=== PATIENT | female | born 1990 | race Caucasian/White ===

== ENCOUNTER 2017-03-19 08:57 | Emergency (ER) | payer OTHER ==
[~2017-03-19] VITALS: Ht 160 cm; Wt 59.0 kg
[2017-03-19 09:07] VITALS: BP 115/68
[2017-03-19] MEDS ORDERED: HYDR-971 PO (09:47)
[2017-03-19] MEDS ORDERED: AMOX500C PO (09:47)
--- NOTE | 2017-03-19 09:47 | PHYS DOC ---
Past Medical History Past Medical History: No Pertinent History Past Surgical History: , Tubal ligation Alcohol Use: None Drug Use: None Adult General Chief Complaint Chief Complaint: DENTAL PROBLEM HPI HPI Patient is a 26 year old female presents to the emergency department stating that she has having left lower dental pain and discomfort. She states this is been helping for the last few days. She's been taken ibuprofen for the pain with minimal relief. Patient does have swelling noted to the left outer jaw area. She has not placed a appointment with the dentist as she was trying to wait for the inflammation to go down. She denies any allergies. She denies any possibility of being . Review of Systems Review of Systems Constitutional: Denies fever or chills [] Eyes: Denies change in visual acuity, redness, or eye pain [] HENT: Denies nasal congestion or sore throat. Complaint of dental pain with left lower jaw swelling Respiratory: Denies cough or shortness of breath [] Cardiovascular: No additional information not addressed in HPI [] GI: Denies abdominal pain, nausea, vomiting, bloody stools or diarrhea [] : Denies dysuria or hematuria [] Musculoskeletal: Denies back pain or joint pain [] Integument: Denies rash or skin lesions [] Neurologic: Denies headache, focal weakness or sensory changes [] Endocrine: Denies polyuria or polydipsia [] Allergies Allergies Allergies Coded Allergies Type Severity Reaction Last Updated Verified No Known Drug Allergies 03/19/17 No Physical Exam Physical Exam Constitutional: Well developed, well nourished, no acute distress, non-toxic appearance. [] HENT: Normocephalic, atraumatic, bilateral external ears normal, oropharynx moist, no oral exudates, nose normal. Bilateral tympanic membranes appear to be normal. Patient with decreased ability to open the mouth due to the swelling and pain. Teeth #22 through 24. To be red decayed with redness noted. No drainage or discharge noted. She does have swelling noted to the outer portion of the left lower jaw. Eyes: PERRLA, EOMI, conjunctiva normal, no discharge. [] Neck: Normal range of motion, no tenderness, supple, no stridor. [] Cardiovascular:Heart rate regular rhythm, no murmur [] Lungs & Thorax: Bilateral breath sounds clear to auscultation [] Skin: Warm, dry, no erythema, no rash. [] Back: No tenderness Extremities: No tenderness, no cyanosis, no clubbing, ROM intact, no edema. [] Neurologic: Alert and oriented X 3, normal motor function, normal sensory function, no focal deficits noted. [] Psychologic: Affect normal, judgement normal, mood normal. [] Current Patient Data Vital Signs Vital Signs Date Time Temp Pulse Resp B/P (MAP) Pulse Ox O2 Delivery O2 Flow Rate FiO2 03/19/17 09:07 98.2 66 18 96 Room Air 98.2 EKG EKG [] Radiology/Procedures Radiology/Procedures [] Course & Med Decision Making Course & Med Decision Making Pertinent Labs and Imaging studies reviewed. (See chart for details) Patient will be discharged home with a prescription for amoxicillin 4 times a day. She'll also be provided with a prescription for hydrocodone in which she was instructed will cause drowsiness do not take if she needs be alert and oriented. Recommended warm moist packs as well as continuing with ibuprofen. Patient will be discharged home in stable condition with recommendations to follow-up in 3-5 days. Also recommended for her to go ahead and place a appointment with a dentist as sometimes it is difficult to get in. Patient will be discharged home in stable condition signs symptoms to return back as been provided. All questions and concerns answered at patient's bedside. [] Dragon Disclaimer Dragon Disclaimer This electronic medical record was generated, in whole or in part, using a voice recognition dictation system. Departure Departure Impression: Primary Impression: Infected dental caries Disposition: 01 HOME, SELF-CARE Condition: STABLE Patient Instructions: Dental Abscess Additional Instructions: Activity as tolerated. Antibiotics as prescribed. Continue with the ibuprofen every 8 hours. Hydrocodone for severe pain and discomfort. This medication will cause drowsiness do not take any be alert and oriented. Follow-up with the primary care physician or return back here in 3-5 days to make sure the infection is starting to clear. It is advisable you call for a dental appointment as soon as possible. Return back to emergency prior signs symptoms of become worse. Scripts Hydrocodone/Apap 5-325 (NORCO 5-325 TABLET) 1 Each Tablet 1 TAB PO PRN Q6HRS Y for PAIN, #20 TAB 0 Refills Prov: LISA OLIVERAAntonia Jaime TAX EXAMINING TECHNICIAN 03/19/17 Amoxicillin (AMOXICILLIN) 500 Mg Capsule 1 CAP PO QID, #40 CAP Prov: EZEKIEL OLIVERA APRN 03/19/17 EZEKIEL OLIVERA APRN Mar 19, 2017 09:47
== END 2017-03-19 09:58 | disposition home or self-care (01) ==
LOC: ER 08:57
DX: K04.7 Periapical abscess without sinus (principal); K08.89 Other specified disorders of teeth and supporting structures
CPT/HCPCS: 99283

== ENCOUNTER → 2017-04-14 | Outpatient (CLI) | payer MEDICAID, OTHER ==
[2017-03-19 09:07] VITALS: BP 115/68
[~2017-04-14] MED LIST: AMOX500C PO; HYDR-971 PO
--- NOTE | 2017-04-14 11:58 | RAD ---
Indication right upper quadrant abdominal pain. Grayscale imaging was performed. Examination was targeted to the right upper quadrant. No prior imaging is available. The gallbladder appears normal. No cholelithiasis or wall thickening is seen. That portion of the pancreas which was seen appeared unremarkable. The visualized aorta and IVC appeared normal. The visualized liver appeared normal. The common bile duct diameter of approximately 4 mm is normal. The right kidney appeared unremarkable. IMPRESSION: Normal right upper quadrant ultrasound exam
== END | disposition home or self-care (01) ==
LOC: US 11:06
PROVIDERS: ATTEND Family Medicine
DX: K80.20 Calculus of gallbladder without cholecystitis without obstruction (principal)
CPT/HCPCS: 76705

== ENCOUNTER 2018-11-12 10:51 | Emergency (ER) | payer OTHER ==
[~2018-11-12] VITALS: Ht 157.5 cm; Wt 63.5 kg
[~2018-11-12 10:51] MED LIST changes: +HYDR-3164 PO; -HYDR-971 PO; +OMEP40CA5 PO
[2018-11-12 11:30] VITALS: BP 108/63
[2018-11-12] MEDS ORDERED: TETRACAINE 0.5% OPHTH SOLUTION 4ML BOTTLE. OS ONE (12:15)
[2018-11-12] MEDS ORDERED: FLUORESCEIN OPHTH TEST STRIP. OS ONE (12:15)
--- NOTE | 2018-11-12 12:42 | PHYS DOC ---
Past Medical History Past Medical History: No Pertinent History Past Surgical History: , Tubal ligation Additional Past Surgical Histo: C-SECTIONX3 Smoking: Less than 1pk/day Additional Information: smoker Alcohol Use: None Drug Use: None Adult General Chief Complaint Chief Complaint: EYE PROBLEMS HPI HPI Patient is a 28 year old who presents after working at [employer] this morning and she thinks she got something in her left eye. This happened at approximately 10:30 this morning. Pt is having irritation of her left eye. States her pain is 5 out of 10 and feels scratchy. Also states that the corner of her eye is blurry. She is not a contact wearer. Has not tried any treatment prior to arrival Review of Systems Review of Systems Constitutional: Denies fever or chills [] Eyes: Denies change in visual acuity, redness but reports eye pain and corner of eye blurriness.[] HENT: Denies nasal congestion or sore throat [] Respiratory: Denies cough or shortness of breath [] Cardiovascular: No additional information not addressed in HPI [] GI: Denies abdominal pain, nausea, vomiting, bloody stools or diarrhea [] : Denies dysuria or hematuria [] Musculoskeletal: Denies back pain or joint pain [] Integument: Denies rash or skin lesions [] Neurologic: Denies headache, focal weakness or sensory changes [] Endocrine: Denies polyuria or polydipsia [] Complete systems were reviewed and found to be within normal limits, except as documented in this note. Current Medications Current Medications Current Medications Medications (Trade) Dose Ordered Sig/Tommy Start Time Stop Time Status Last Admin Dose Admin Fluorescein Sodium (Ful-Gisele) 1 strip 1X ONCE 11/12/18 12:15 11/12/18 12:16 DC Tetracaine HCl (Tetracaine) 1 drop 1X ONCE 11/12/18 12:15 11/12/18 12:16 DC Allergies Allergies Allergies Coded Allergies Type Severity Reaction Last Updated Verified No Known Drug Allergies 03/19/17 No Physical Exam Physical Exam Constitutional: Well developed, well nourished, no acute distress, non-toxic appearance. [] HENT: Normocephalic, atraumatic, bilateral external ears normal, oropharynx moist, no oral exudates, nose normal. [] Eyes: PERRLA, EOMI, conjunctiva normal, no discharge. Corneal abrasion on L pupil Neck: Normal range of motion, no tenderness, supple, no stridor. [] Cardiovascular:Heart rate regular rhythm, no murmur [] Lungs & Thorax: Bilateral breath sounds clear to auscultation [] Abdomen: Soft, no tenderness, no masses, no pulsatile masses. [] Skin: Warm, dry, no erythema, no rash. [] Extremities: No tenderness, no cyanosis, no clubbing, ROM intact, no edema. [] Neurologic: Alert and oriented X 3, normal motor function, normal sensory function, no focal deficits noted. [] Psychologic: Affect normal, judgement normal, mood normal. [] Current Patient Data Vital Signs Vital Signs Date Time Temp Pulse Resp B/P (MAP) Pulse Ox O2 Delivery O2 Flow Rate FiO2 11/12/18 11:30 98.6 77 20 108/63 (78) 98 Room Air 98.6 EKG EKG [] Radiology/Procedures Radiology/Procedures Performed Wood's lamp examination on patient. Reveals corneal abrasion on L eye on the right side of pupil. [] Course & Med Decision Making Course & Med Decision Making Pertinent Labs and Imaging studies reviewed. (See chart for details) Discussed symptoms with patients. Will do rm lamp examination and visual acuity. Patient is agreeable. Wood's lamp examination reveals corneal abrasion to the anterior portion of L pupil on the right side. Visual acuity is reduced in left eye. Patient has blurriness in the area of vision where the corneal abrasion is which explains the visual acuity. Patient is agreeable to plan of care for discharge. Dragon Disclaimer Dragon Disclaimer This electronic medical record was generated, in whole or in part, using a voice recognition dictation system. Departure Departure Impression: Primary Impression: Corneal abrasion, left Disposition: HOME, SELF-CARE Condition: STABLE Referrals: NO PCP (PCP) Patient Instructions: Eye - Corneal Abrasion, [id number] Additional Instructions: Follow up with human resources office manager as needed. Take prescribed medication as directed. Can try cold compresses on eye for relief. Scripts Erythromycin Base (Erythromycin) 1 Gm Oint...g. 1 GM OP QID for 5 Days, MISC 0.5 inch ribbon applied 4 times daily. Prov: FADY CERVANTES VISUAL ARTIST 11/12/18 Problem Qualifiers Primary Impression: Corneal abrasion, left Encounter type: initial encounter Qualified Codes: S05.02XA - Injury of conjunctiva and corneal abrasion without foreign body, left eye, initial encounter FADY CERVANTES APRN November 12, 2018 12:42
[2018-11-12] MEDS ORDERED: KETO5DRO24 OD (12:58)
[2018-11-12] MEDS ORDERED: ERYT1OIN6 OP (12:58)
== END 2018-11-12 13:11 | disposition home or self-care (01) ==
LOC: ER 10:51
DX: S05.02XA Injury of conjunctiva and corneal abrasion without foreign body, left eye, initial encounter (principal); F17.200 Nicotine dependence, unspecified, uncomplicated; X58.XXXA Exposure to other specified factors, initial encounter; Y93.89 Activity, other specified; Y92.89 Other specified places as the place of occurrence of the external cause; Y99.8 Other external cause status
CPT/HCPCS: 99283

== ENCOUNTER 2018-11-17 11:47 | Emergency (ER) | payer OTHER ==
[~2018-11-17] VITALS: Ht 157.5 cm; Wt 63.5 kg
[~2018-11-17 11:47] MED LIST changes: +ERYT1OIN6 OP; +KETO5DRO24 OD
[2018-11-17 12:04] VITALS: BP 129/60
[2018-11-17] MEDS: TETRACAINE 0.5% OPHTH SOLUTION 4ML BOTTLE. OS ONE ×2 (14:59→15:20)
[2018-11-17] MEDS: FLUORESCEIN OPHTH TEST STRIP. OS ONE ×2 (14:59→15:20)
--- NOTE | 2018-11-17 17:01 | PHYS DOC ---
Past Medical History Past Medical History: No Pertinent History (JENISE CISNEROS APRN) Past Surgical History: , Tubal ligation, Other Additional Past Surgical Histo: C-SECTIONX3 (JENISE CISNEROS APRN) Additional Information: 0.5 PPD Alcohol Use: Occasionally Drug Use: None (JENISE CISNEROS APRN) Adult General Chief Complaint Chief Complaint: EYE PROBLEMS HPI HPI Patient is a 28 year old female who presents to the ED today complaining of ongoing pain to the left eye from a coronary abrasion she sustained on Wednesday at work. Patient states she was seen in the ED, was discharged with erythromycin, was seen by the church supervisor on Wednesday, sent home with moisturizing eye drops she states she still has the pain and blurry vision. Denies any vision loss. (JENISE CISNEROS APRN) Review of Systems Review of Systems Constitutional: Denies fever or chills [] Eyes: Pupils left eye corneal abrasion. Denies change in visual acuity, redness, or eye pain [] Musculoskeletal: Denies back pain or joint pain [] Integument: Denies rash or skin lesions [] Neurologic: Denies headache, focal weakness or sensory changes [] All other systems were reviewed and found to be within normal limits, except as documented in this note. (JENISE CISNEROS APRN) Current Medications Current Medications Current Medications Medications (Trade) Dose Ordered Sig/Tommy Start Time Stop Time Status Last Admin Dose Admin Fluorescein Sodium (Ful-Gisele) 1 strip 1X ONCE 11/17/18 14:00 11/17/18 14:01 DC 11/17/18 15:20 1 STRIP Tetracaine HCl (Tetracaine) 1 drop 1X ONCE 11/17/18 14:00 11/17/18 14:01 DC (FADY DELUCA DO) Allergies Allergies Allergies Coded Allergies Type Severity Reaction Last Updated Verified No Known Drug Allergies 03/19/17 No (FADY DELUCA DO) Physical Exam Physical Exam Constitutional: Well developed, well nourished, no acute distress, non-toxic appearance. [] HENT: Normocephalic, atraumatic, bilateral external ears normal, oropharynx moist, no oral exudates, nose normal. [] Eyes: PERRLA, EOMI, conjunctiva normal, no discharge. [] ordered eye exam medication and equipment, she left. Skin: Warm, dry, no erythema, no rash. [] Back: No tenderness, no CVA tenderness. [] Extremities: No tenderness, no cyanosis, no clubbing, ROM intact, no edema. [] Neurologic: Alert and oriented X 3, normal motor function, normal sensory function, no focal deficits noted. [] Psychologic: Affect normal, judgement normal, mood normal. [] (JENISE CISNEROS APRN) Current Patient Data Vital Signs Vital Signs Date Time Temp Pulse Resp B/P (MAP) Pulse Ox O2 Delivery O2 Flow Rate FiO2 11/17/18 12:04 97.7 73 16 129/60 (83) 98 Room Air 97.7 (FADY DELUCA DO) EKG EKG [] (JENISE CISNEROS APRN) Radiology/Procedures Radiology/Procedures [] (JENISE CISNEROS APRN) Course & Med Decision Making Course & Med Decision Making Pertinent Labs and Imaging studies reviewed. (See chart for details) This is a 28-year-old female patient presenting to the ED today with complaints of left eye pain from a corneal abrasion she sustained on Wednesday. See history of present illness. Ordered eye exam equipment and medications. Unfortunately it has been very busy in the ED. Patient left with no full eye exam. (JENISE CISNEROS APRN) Dragon Disclaimer Dragon Disclaimer This electronic medical record was generated, in whole or in part, using a voice recognition dictation system. (JENISE CISNEROS APRN) Departure Departure Impression: Primary Impression: Corneal abrasion, left Disposition: 07 AGAINST MEDICAL ADVICE Condition: STABLE Referrals: NO PCP (PCP) Attending Signature Attending Signature I have reviewed the PA/GAS ENGINEER's note and plan of care. I was available for consultation as needed during the patient's visit in the emergency department. I agree with the clinical impression, plan, and disposition. (FADY DELUCA DO) Problem Qualifiers Primary Impression: Corneal abrasion, left Encounter type: subsequent encounter Qualified Codes: S05.02XD - Injury of conjunctiva and corneal abrasion without foreign body, left eye, subsequent encounter JENISE CISNEROS APRN November 17, 2018 17:01 FADY DELUCA DO November 18, 2018 10:31
== END 2018-11-17 15:20 | disposition left against medical advice (07) ==
LOC: ER 11:47
DX: S05.02XD Injury of conjunctiva and corneal abrasion without foreign body, left eye, subsequent encounter (principal); H57.12 Ocular pain, left eye; F17.200 Nicotine dependence, unspecified, uncomplicated; X58.XXXD Exposure to other specified factors, subsequent encounter
CPT/HCPCS: 99282

== ENCOUNTER → 2021-08-28 | Outpatient (CLI) | payer BC, MEDICAID ==
[~2021-08-28] MED LIST changes: -OMEP40CA5 PO; +OMEP40CA7 PO
--- NOTE | 2021-08-28 12:53 | KCIC ---
EXAMINATION: US ABDOMEN LIMITED 08/28/2021 9:53 AM INDICATION: Generalized abdominal pain, attention to gallbladder. TECHNIQUE: Tovar scale and color Doppler ultrasound images of the right upper quadrant were obtained. COMPARISON: Abdominal ultrasound 04/14/2017. FINDINGS: Liver: The liver is normal in size measuring 15 cm in length. Normal hepatic echogenicity. No focal liver lesion. Gallbladder: The gallbladder is normal in caliber. No cholelithiasis or sludge. The gallbladder wa ll is normal in thickness measuring 2 mm. Bile ducts: The common bile duct is normal measuring 4.5 mm. No intrahepatic biliary duct dilatatio n. Right kidney: The right kidney measures 11.5 x 5.1 x 5.0 cm. Normal cortical thickness and echogenic ity. No hydronephrosis. Other: The inferior vena cava is patent at the level the liver. The pancreas is normal where visualiz ed. IMPRESSION: Normal right upper quadrant ultrasound. Electronically signed by: Fay Ceballos MD (08/28/2021 12:50 PM) [id number]
== END ==
LOC: KCIC US 09:49
PROVIDERS: ATTEND Physician Assistant Medical
DX: R10.84 Generalized abdominal pain (principal)
CPT/HCPCS: 76705

== ENCOUNTER → 2021-09-26 | Outpatient (CLI) | payer MEDICAID ==
--- NOTE | 2021-09-26 12:38 | RAD ---
INDICATION: Abdomen pain COMPARISON: August 28, 2021 TECHNIQUE: 5.2mCi of Tc99m Choletec was injected intravenously followed by scintigraphic images of the abdomen. 8 ounces of ensure was given and a gallbladder ejection fraction was calculated. FINDINGS: Appropriate radiotracer clearance from the blood pool. Appropriate radiotracer excretion into the biliary tree. Prompt passage of contrast into the small bowel. Visualization of the gallbladder prior to the 60 minute time point. Gallbladder ejection fraction is 87 percent. IMPRESSION: * No scintigraphic evidence of acute cholecystitis or high grade biliary obstruction. * No evidence of biliary dyskinesia. Electronically signed by: Amor Altamirano MD (09/26/2021 12:36 PM) [id number]
== END ==
LOC: NM 08:51
PROVIDERS: ATTEND Physician Assistant Medical
DX: R10.11 Right upper quadrant pain (principal)
CPT/HCPCS: 78227; A9537